=== PATIENT | male | born 1970 | race Caucasian/White ===

== ENCOUNTER 2022-04-11 09:02 | Outpatient (CLI) | payer BC, SELFPAY ==
--- NOTE | 2022-04-11 09:08 | EST_ITS ---
Patient Info Name: Fernando Oneal Age: 52 years : 1970 Gender: Male Ht: 70 in Wt: 255 lbs BSA: 2.43 m2 Exam Date: 04/11/2022 9:21 AM Exam Location: [facility] Stress Patient Status: Outpatient Admit Date: 04/11/2022 Staff Ordering Physician: Kim Cesar Attending Provider: Kim Cesar Exercise Technologist: Glory Clark RDCS Exercise Physician: Harvinder Lugo DO Exam Type: CA stress test treadmill Study Info A treadmill exercise stress test was performed. Summary 1. 1. Negative Jose exercise stress test for ischemic ST changes by ECG criteria. 2. 2. Good functional capacity, achieving 10 METs of workload. 3. 3. Baseline hypertension with hypertensive response to exercise. 4. 4. Appropriate HR response to exercise. 5. 5. Appropriate HR recovery at 1 minute post exercise. 6. 6. No imaging with stress testing. 7. 7. Patient informed of the above results. Protocol: Jose Stress ECG Details Stage: REST Duration (min): 5 min : 12 sec Speed (mph): 0.0 Grade (%): 0 HR (bpm): 75 SBP (mmHg): 145 DBP (mmHg): 86 METS: --- Stage: REST Duration (min): 21 min : 33 sec Speed (mph): 0.0 Grade (%): 0 HR (bpm): 76 SBP (mmHg): 145 DBP (mmHg): 86 METS: --- Stage: STAGE 1 Duration (min): 1 min : 0 sec Speed (mph): 1.7 Grade (%): 10 HR (bpm): 98 SBP (mmHg): 145 DBP (mmHg): 86 METS: --- Stage: STAGE 1 Duration (min): 2 min : 0 sec Speed (mph): 1.7 Grade (%): 10 HR (bpm): 105 SBP (mmHg): 145 DBP (mmHg): 86 METS: --- Stage: STAGE 1 Duration (min): 3 min : 0 sec Speed (mph): 1.7 Grade (%): 10 HR (bpm): 108 SBP (mmHg): 190 DBP (mmHg): 88 METS: --- Stage: STAGE 2 Duration (min): 1 min : 0 sec Speed (mph): 2.5 Grade (%): 12 HR (bpm): 117 SBP (mmHg): 190 DBP (mmHg): 88 METS: --- Stage: STAGE 2 Duration (min): 2 min : 0 sec Speed (mph): 2.5 Grade (%): 12 HR (bpm): 124 SBP (mmHg): 202 DBP (mmHg): 87 METS: --- Stage: STAGE 2 Duration (min): 3 min : 0 sec Speed (mph): 2.5 Grade (%): 12 HR (bpm): 125 SBP (mmHg): 202 DBP (mmHg): 87 METS: --- Stage: STAGE 3 Duration (min): 1 min : 0 sec Speed (mph): 3.4 Grade (%): 14 HR (bpm): 139 SBP (mmHg): 214 DBP (mmHg): 102 METS: --- Stage: STAGE 3 Duration (min): 2 min : 0 sec Speed (mph): 3.4 Grade (%): 14 HR (bpm): 145 SBP (mmHg): 214 DBP (mmHg): 102 METS: --- Stage: STAGE 3 Duration (min): 3 min : 0 sec Speed (mph): 3.4 Grade (%): 14 HR (bpm): 150 SBP (mmHg): 236 DBP (mmHg): 134 METS: --- Stage: RECOVERY Duration (min): 0 min : 59 sec Speed (mph): 0.0 Grade (%): 0 HR (bpm): 122 SBP (mmHg): 237 DBP (mmHg): 117 METS: --- Stage: RECOVERY Duration (min): 1 mi
== END 2022-04-11 09:03 | disposition home or self-care (01) ==
PROVIDERS: PCP Internal Medicine; Visit Provider Nurse Practitioner
DX: R07.9 Chest pain, unspecified (principal)
CPT/HCPCS: 93017

== ENCOUNTER 2025-05-16 07:48 | Outpatient (CLI) | payer BC, SELFPAY ==
--- NOTE | ~2025-05-16 | US_ITS ---
US scrotum doppler INDICATION: Scrotal mass with swelling TECHNIQUE: Testicular sonogram utilizing grayscale and color Doppler FINDINGS: The testes are normal in size and appearance. No focal lesions are seen. The right testes measures 4.9 x 2.8 x 3.1 cm centimeters, and the left testis measures 4.3 x 2.1 x 3.2 cm cm. There is normal vascular flow to both testes. The right and left epididymides appear normal. There are bilateral varicoceles. No significant hydrocele. IMPRESSION: 1. Bilateral varicoceles. Reviewed, dictated and finalized at location O. IMPRESSION: 1. Bilateral varicoceles.
== END 2025-05-16 07:49 | disposition home or self-care (01) ==
LOC: MICIMG 07:49
PROVIDERS: PCP Nurse Practitioner; Visit Provider Internal Medicine
DX: N50.89 Other specified disorders of the male genital organs (principal); I86.1 Scrotal varices
CPT/HCPCS: 76870; 93976